=== PATIENT | female | born 2000 | race African-American/Black ===

== ENCOUNTER 2021-02-02 14:04 | Emergency (ER) | payer BC ==
[~2021-02-02] VITALS: Ht 154.9 cm; Wt 66.0 kg
[2021-02-02] MEDS ORDERED: FAMOTIDINE 20MG/2ML VIAL IV STA (14:36)
[2021-02-02] MEDS ORDERED: ONDANSETRON HCL 4MG/2ML INJ IV STA (14:36)
[2021-02-02] MEDS ORDERED: SODIUM CHLORIDE 0.9% 1,000 ML IV ONE (14:45)
[2021-02-02] MEDS ORDERED: METOCLOPRAMIDE HCL 10MG/2ML VIAL IV ONE (15:15)
[2021-02-02] MEDS ORDERED: DIPHENHYDRAMINE 50MG/ML VIAL IV ONE (15:15)
[2021-02-02 15:21] LABS: BASOPHILS % 0.7 % (0.0-2.0); CHLORIDE 106 mEq/L (98-107); EOSINOPHILS % 0.9 % (0.0-5.0); HEMOGLOBIN. 12.3 g/dL (12.0-16.0); LYMPHOCYTES % 23.9 % (20.0-50.0); MEAN CORPUSCULAR HEMOGLOBIN 31.7 pg (28.0-32.0); MEAN CORPUSCULAR VOLUME 95.7 fL (81.0-99.0); MEAN PLATELET VOLUME 7.7 fl (7.4-10.4); NEUTROPHILS % 68.5 % (40.0-76.0); PLATELET 290 x1000/uL (130-400); RED BLOOD CELL COUNT 3.87 mill/uL (4.2-5.4); RED CELL DISTRIBUTION WIDTH 13.8 % (11.6-14.6)
[2021-02-02 15:24] LABS: INR 1.1; PROTHROMBIN TIME 11.9 sec (9.6-11.0)
[2021-02-02 15:25] LABS: ETHANOL BLOOD < 10 mg/dL
[2021-02-02 15:26] LABS: HCG SCREEN NEGATIVE
[2021-02-02 15:50] VITALS: BP 109/69
[2021-02-02] MEDS ORDERED: BUTALBITAL/ACETAMINOPHEN/CAFFEINE 50/325/40MG TABLET PO ONE (17:45)
[2021-02-02] MEDS ORDERED: BUTA1CAP45 MT (18:09)
== END 2021-02-02 18:34 | disposition home or self-care (01) ==
LOC: ER 14:22
DX: G43.909 Migraine, unspecified, not intractable, without status migrainosus (principal); J45.909 Unspecified asthma, uncomplicated
CPT/HCPCS: 36415; 71045; 80053; 80320; 83690; 84484; 84703; 85025; 85610; 93005; 96361; 96374; 96375; 99285; J1200; J2405; J2765; J3490; J7030; G0480